=== PATIENT | female | born 1980 | race African-American/Black ===

== ENCOUNTER 2019-04-07 19:05 | Emergency (ER) | payer MEDICAID ==
[~2019-04-07] VITALS: Ht 185.4 cm; Wt 86.2 kg
[~2019-04-07 19:05] MED LIST: BACTRIM DS TAB1 EAC1 ORAL; BACTRIM-DS1 EA ORAL; BENADRYL ALLERG25 M1 PO; BENADRYL50 MG ORAL; CEPHALEXIN500 MG ORAL; ELIMITE 5% CREA60 GM TOPIC; HYDROCORTISON28.4 G2 TP; KEFLEX500 MG ORAL; NORCO 5-325 TA1 EACH ORAL
[2019-04-07 19:23] VITALS: BP 114/79
--- NOTE | 2019-04-07 19:23 | NUR ---
ED Nurse Note: Pt walked in c/o bug bite on RT buttock. Pt stated this occured a few days ago and increasing pain and difficulty walking. Site red, hard when touched, warm to touch. No drainage, no puss. VSS.
--- NOTE | 2019-04-07 19:38 | Emergency Room Report ---
History of Present Illness General Chief Complaint: Skin Rash/Abscess Source: Patient Present Illness HPI 38-year-old transgender female here complaining of a 10 out of 10 pain in the right buttocks due to possible insect bite. Patient denies any pain radiation, however over complains of a lot of pain and no pus drainage. Is up-to-date with tetanus shot. Denies any fever and chills, nausea vomiting, chest pain or shortness of breath. Cellulitis of the right buttocks was noted however no abscess formation at this time. Patient denies any tingling or numbness. Has not taken medication for symptom relief. Allergies: Coded Allergies: No Known Allergies (Unverified , 12/14/13) Patient History Past Medical History: see triage record Past Surgical History: unable to obtain Pertinent Family History: none Last Menstrual Period: na Now: No Immunizations: UTD Reviewed Nursing Documentation: PMH: Agreed; PSxH: Agreed Review of Systems All Other Systems: negative except mentioned in HPI Physical Exam Vital Signs Date Time Temp Pulse Resp B/P (MAP) Pulse Ox O2 Delivery O2 Flow Rate FiO2 04/07/19 19:17 99.1 100 18 114/79 (91) 96 Room Air Sp02 EP Interpretation: reviewed, normal General Appearance: no apparent distress, alert, GCS 15, non-toxic Head: normocephalic, atraumatic Eyes: bilateral eye normal inspection, bilateral eye PERRL ENT: hearing grossly normal, normal pharynx, no angioedema, normal voice Neck: full range of motion, supple/symm/no masses Respiratory: chest non-tender, lungs clear, normal breath sounds, no wheezing, speaking full sentences Cardiovascular #1: regular rate, rhythm, no edema, no murmur, normal capillary refill Gastrointestinal: normal bowel sounds, non tender, soft, no mass, no organomegaly Rectal: other - Cellulitis right buttocks Genitourinary: no CVA tenderness Musculoskeletal: normal inspection, back normal, digits/nails normal Neurologic: alert, oriented x3, responsive, motor strength/tone normal, sensory intact, speech normal Psychiatric: judgement/insight normal, memory normal, mood/affect normal, no suicidal/homicidal ideation Skin: other - Cellulitis right buttocks Lymphatic: no adenopathy Medical Decision Making PA Attestation All diagnoses and treatment plans were reviewed and discussed with my supervising physician Dr. Mora Diagnostic Impression: Primary Impression: Cellulitis of buttock ER Course 38-year-old transgender female here complaining of a 10 out of 10 pain in the right buttocks due to possible insect bite. Patient denies any pain radiation, however over complains of a lot of pain and no pus drainage. Is up-to-date with tetanus shot. Denies any fever and chills, nausea vomiting, chest pain or shortness of breath. Cellulitis of the right buttocks was noted however no abscess formation at this time. Patient denies any tingling or numbness. Has not taken medication for symptom relief. Ddx considered but are not limited to : Cellulitis, superficial infection, abscess Vital signs: are WNL, pt. is afebrile H&PE are most consistent with: Cellulitis without abscess ORDERS: Keflex, Bactrim, ibuprofen 800 ED INTERVENTIONS: Toradol, Keflex, Bactrim DISCHARGE: At this time pt. is stable for d/c to home. Will provide printed patient care instructions, and any necessary prescriptions. Care plan and follow up instructions have been discussed with the patient prior to discharge. Follow-up with her primary care provider wound clean and dressed with stone if worsening symptoms return to the emergency room. At this time incision and drainage is not recommended as this is cellulitic no abscess formation yet however I recommend that you start antibiotics right away. Last Vital Signs Date Time Temp Pulse Resp B/P (MAP) Pulse Ox O2 Delivery O2 Flow Rate FiO2 04/07/19 19:17 99.1 100 18 114/79 (91) 96 Room Air Disposition: HOME, SELF-CARE Condition: Stable Scripts Ibuprofen (Ibu) 800 Mg Tablet 800 MG PO TID, #30 TAB Prov: Yoko Coyle 04/07/19 Cephalexin* (KEFLEX*) 500 Mg Capsule 500 MG ORAL EVERY 6 HOURS for 7 Days, #28 CAP Prov: Yoko Coyle 04/07/19 Trimethoprim/Sulfamethoxazole 160/800* (BACTRIM DS TABLET*) 1 Each Tablet 1 TAB ORAL TWICE A DAY for 7 Days, #14 TAB Prov: Yoko Coyle 04/07/19 Patient Instructions: Cellulitis, [id number] Additional Instructions: Take medication as directed, follow-up with your primary care provider in 2 days , if worsening symptoms return to the emergency room. Yoko Coyle Apr 07, 2019 19:38
[2019-04-07] MEDS ORDERED: CEPHALEXIN500 MG ORAL (19:40)
[2019-04-07] MEDS ORDERED: IBU800 MG PO (19:40)
[2019-04-07] MEDS ORDERED: BACTRIM DS TAB1 EAC1 ORAL (19:40)
[2019-04-07] MEDS ORDERED: Ketorolac 30mg Inj IM ONE (19:45)
[2019-04-07] MEDS ORDERED: Cephalexin 500mg cap ORAL ONE (19:45)
[2019-04-07] MEDS ORDERED: Bactrim-DS 1 tab ORAL ONE (19:45)
[2019-04-07 19:48] VITALS: BP 114/79
--- NOTE | 2019-04-07 19:48 | NUR ---
ED Nurse Note: Pt cleared by ERMD for discharge. DC instructions/prescription was given and explained to pt and verbalized understanding of teachings. All medical deviecs such as ID band removed. Pt is AAO x4, ambulatory and left with all personal belongings. Accompanied by s/o.
== END 2019-04-07 19:48 | disposition home or self-care (01) ==
LOC: EMR 19:30
DX: L03.317 Cellulitis of buttock (principal)
CPT/HCPCS: 96372; J1885; Z7502; 99283

== ENCOUNTER 2019-06-16 15:26 | Emergency (ER) | payer MEDICAID ==
[~2019-06-16] VITALS: Ht 185.4 cm; Wt 86.2 kg
[~2019-06-16 15:26] MED LIST changes: +IBU800 MG PO
[2019-06-16] MEDS ORDERED: HYDROcodone/Acetamin 5/325 tab ORAL ONE (16:30)
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
[2019-06-16] MEDS ORDERED: CLOTRIMAZOLE15 GM TOPIC (16:36)
[2019-06-16] MEDS ORDERED: CEPHALEXIN500 MG ORAL (16:36)
[2019-06-16] MEDS ORDERED: GABAPENTIN100 MG ORAL (16:36)
[2019-06-16 17:00] VITALS: BP 121/84
== END 2019-06-16 17:03 | disposition home or self-care (01) ==
LOC: EMR 16:00
DX: R20.2 Paresthesia of skin (principal); L89.891 Pressure ulcer of other site, stage 1
CPT/HCPCS: 99282